=== PATIENT | male | born 1955 | race Caucasian/White ===

== ENCOUNTER → 2020-06-12 | Outpatient (CLI) | payer MEDICARE ==
[~2020-06-12] MED LIST: ALBU90OI6 INH; ALLO300 PO; DILT180 PO; FLUO.01TC TOP; FLUSAL2505 IH; GABA300 PO; HYDPAM50 PO; METF500 PO; PRED20 PO; VALS80 PO
== END ==
LOC: LAB SHORT 15:48
DX: N43.3 Hydrocele, unspecified (principal)
CPT/HCPCS: 87070; 87075; 87077; 87147; 87186; 87205

== ENCOUNTER 2023-02-02 08:48 | Day surgery (SDC) | payer OTHER ==
[~2023-02-02] VITALS: Ht 185.4 cm; Wt 94.9 kg
[2023-02-02] MEDS ORDERED: FARXIGA5 MG (09:15)
[2023-02-02] MEDS ORDERED: TRIA50 (09:15)
[2023-02-02] MEDS ORDERED: LISI20 (09:15)
[2023-02-02] MEDS ORDERED: Actos15 MG (09:16)
[2023-02-02] MEDS ORDERED: ATOR10 (09:16)
[2023-02-02] MEDS ORDERED: GABA300 (09:17)
[2023-02-02] MEDS ORDERED: METO25ER (09:17)
[2023-02-02] MEDS ORDERED: MONT10T (09:17)
[2023-02-02] MEDS ORDERED: ALLO300 (09:17)
[2023-02-02] MEDS ORDERED: INSULANPEN (09:18)
[2023-02-02] MEDS ORDERED: Diflucan100 MG (09:18)
--- NOTE | 2023-02-02 10:36 | NUR ---
02/02/23 1036 Charlotte Giron 9ML NORMAL SALINE USED TO ELEVATE POLYP
[2023-02-02 11:02] VITALS: BP 92/71
== END 2023-02-02 11:02 | disposition home or self-care (01) ==
LOC: ORSCSDS 08:48
PROVIDERS: Internal Medicine Gastroenterology
PROC: 0DBE8ZX Excision of Large Intestine, Via Natural or Artificial Opening Endoscopic, Diagnostic (ICD-10-PCS; principal; 2023-02-02 09:45)
PROC: 0DBL8ZX Excision of Transverse Colon, Via Natural or Artificial Opening Endoscopic, Diagnostic (ICD-10-PCS; principal; 2023-02-02 09:45)
PROC: 0DBK8ZX Excision of Ascending Colon, Via Natural or Artificial Opening Endoscopic, Diagnostic (ICD-10-PCS; principal; 2023-02-02 09:45)
DX: R19.7 Diarrhea, unspecified (principal); D12.2 Benign neoplasm of ascending colon; D12.3 Benign neoplasm of transverse colon; K57.30 Diverticulosis of large intestine without perforation or abscess without bleeding; K64.8 Other hemorrhoids; I10 Essential (primary) hypertension; E11.9 Type 2 diabetes mellitus without complications; J45.909 Unspecified asthma, uncomplicated; Z79.899 Other long term (current) drug therapy
CPT/HCPCS: 82947; 88305; 93005; 93010; J2250; J2704; J7120

== ENCOUNTER 2024-07-06 06:22 | Day surgery (SDC) | payer OTHER ==
[~2024-07-06] VITALS: Ht 185.4 cm; Wt 101.5 kg
[~2024-07-06 06:22] MED LIST changes: +ALLO300; +ATOR10; +Actos15 MG; +Diflucan100 MG; +FARXIGA5 MG; +GABA300; +INSULANPEN; +LISI20; +Lactated Ringer's 1,000 ML IV ONE; +METO25ER; +MONT10T; +TRIA50
[2024-07-06] MEDS ORDERED: CeFAZolin Sodium 2,000 MG VIAL ONE (06:31)
[2024-07-06] MEDS ORDERED: SYMBICORT 160-4.6 GM (06:48)
[2024-07-06] MEDS ORDERED: Bupivacaine 0.25% Epi 1:200000 30 ML Vial ONE (07:02)
[2024-07-06] MEDS ORDERED: Lactated Ringer's 1,000 ML IV ONE (07:05)
[2024-07-06] MEDS ORDERED: NAPR220 PO (07:10)
[2024-07-06] MEDS ORDERED: propofoL 20 ML IV ONE ×2 (07:31→07:38)
[2024-07-06] MEDS ORDERED: FentaNYL Citrate 50 MCG/ML 2 ML Injection ONE (07:31)
[2024-07-06] MEDS ORDERED: Ondansetron HCl 2 MG / ML 2ML Vial ONE (07:32)
[2024-07-06] MEDS ORDERED: Dexamethasone Sod Phos 10 MG/ML 1ML VIAL ONE (07:32)
[2024-07-06] MEDS ORDERED: Ketorolac Tromethamine 30mg Vial ONE (07:32)
[2024-07-06] MEDS ORDERED: Phenylephrine HCl 100 MCG/ML-NS 10MLSYR (1MG/10ML) ONE (07:54)
--- NOTE | 2024-07-06 07:57 | NUR ---
07/06/24 0757 Dianna Henao PT HAS THIN SKIN WITH MULTIPLE BRUISES BILATERAL ARMS, DEXACOM RT INNER UPPER ARM COVERED WITH TEGADERM PER DR ALEXANDER
[2024-07-06 11:35] VITALS: BP 163/78
== END 2024-07-06 09:28 | disposition home or self-care (01) ==
LOC: ORSCSDS 06:22
PROVIDERS: Orthopaedic Surgery
PROC: 01N50ZZ Release Median Nerve, Open Approach (ICD-10-PCS; principal; 2024-07-06 07:30)
PROC: 01N40ZZ Release Ulnar Nerve, Open Approach (ICD-10-PCS; principal; 2024-07-06 07:30)
DX: G56.01 Carpal tunnel syndrome, right upper limb (principal); G56.21 Lesion of ulnar nerve, right upper limb; E11.40 Type 2 diabetes mellitus with diabetic neuropathy, unspecified; I10 Essential (primary) hypertension; Z86.73 Personal history of transient ischemic attack (TIA), and cerebral infarction without residual deficits; Z79.4 Long term (current) use of insulin; Z79.899 Other long term (current) drug therapy
CPT/HCPCS: 82947; J0690; J1100; J1885; J2371; J2405; J2704; J3010; J7120